=== PATIENT | female | born 1980 | race Caucasian/White ===

== ENCOUNTER 2020-03-07 09:08 | Outpatient (REF) | payer OTHER, SELFPAY | END 2020-03-07 09:09 | disposition home or self-care (01) | LOC: HO.LAB 09:08 | PROVIDERS: PCP Physician Assistant Medical; Visit Provider Internal Medicine | DX: Z20.828 Contact with and (suspected) exposure to other viral communicable diseases (principal) | CPT/HCPCS: 36415; C9803; U0003 ==

== ENCOUNTER 2021-04-24 09:30 | Outpatient (REF) | payer OTHER, SELFPAY ==
[2021-04-24 10:06] LABS: MANUAL DIFF FLAG NO
[2021-04-24 10:48] LABS: Basophils Absolute Auto 0.1 X10*3/uL (0.0-0.2); Eosinophils Absolute Auto 0.1 X10*3/uL (0.0-0.4); Eosinophils Percent Auto 1.6 % (0-4); Hematocrit 38.7 % (37.0-47.0); Imm Gran Abs Auto 0.02 X10*3/uL (0.00-0.03); Imm Gran Pct Auto 0.3 % (0.0-0.4); Lymphocytes Absolute Auto 1.7 X10*3/uL (1.2-4.9); Lymphocytes Percent Auto 24.6 % (20-40); Mean Corpuscular HGB Conc 33.6 g/dl (31.0-35.0); Mean Corpuscular Hemoglobin 29.8 pg (27.0-33.0); Mean Corpuscular Volume 88.8 fL (80.0-98.0); Mean Platelet Volume 8.7 fL (9.4-12.3); Monocytes Absolute Auto 0.6 X10*3/uL (0.1-1.2); Monocytes Percent Auto 8.8 % (2-11); Neutrophils Absolute Auto 4.3 x10*3/uL (2.0-8.3); Neutrophils Percent Auto 63.7 % (45-73); Platelet Count 294 X10*3/uL (160-400); Red Blood Count 4.36 X10*6/uL (4.20-5.50); Red Cell Distribution Width 11.9 % (11.0-16.0); White Blood Count 6.7 X10*3/uL (4.8-10.8)
[2021-04-24 11:24] LABS: Alanine Aminotransferase 14 U/L (0-31); Albumin Level 4.5 g/dL (3.5-5.0); Alkaline Phosphatase 78 U/L (39-117); Anion Gap 13 (12-20); Aspartate Amino Transferase 17 U/L (5-31); Bilirubin Total 0.7 mg/dL (0.0-1.0); Blood Urea Nitrogen 17 mg/dL (9-16); Calcium 9.6 mg/dL (8.4-10.2); Carbon Dioxide 27 mmol/L (22-29); Chloride 103 mmol/L (96-108); Cholesterol 156 mg/dL; Estimated Glomerular Filt Rate > 60; Glucose Fasting 90 mg/dL (60-99); HDL Cholesterol 79 mg/dL; LDL Cholesterol Calculated 71 mg/dl; Potassium 4.6 mmol/L (3.3-5.1); Sodium 138 mmol/L (135-145); Total Protein 7.3 g/dL (6.5-8.0); Triglycerides 34 mg/dL
[2021-04-24 11:49] LABS: Thyroid Stimulating Hormone 1.54 uIU/mL (0.32-4.0)
== END 2021-04-24 09:31 | disposition home or self-care (01) ==
LOC: HO.LAB 09:30
PROVIDERS: PCP Internal Medicine; Visit Provider Internal Medicine
DX: K59.01 Slow transit constipation (principal); E78.5 Hyperlipidemia, unspecified; I10 Essential (primary) hypertension
CPT/HCPCS: 36415; 80053; 80061; 84443; 85025

== ENCOUNTER 2022-01-09 07:56 | Outpatient (REF) | payer OTHER, SELFPAY ==
[2022-01-09 08:58] LABS: Anion Gap 16 (12-20); Blood Urea Nitrogen 16 mg/dL (9-16); Calcium 9.6 mg/dL (8.4-10.2); Carbon Dioxide 25 mmol/L (22-29); Chloride 104 mmol/L (96-108); Cholesterol 157 mg/dL; Estimated Glomerular Filt Rate > 60; Glucose Random 92 mg/dL (60-115); HDL Cholesterol 79 mg/dL; LDL Cholesterol Calculated 72 mg/dl; Potassium 4.6 mmol/L (3.3-5.1); Sodium 140 mmol/L (135-145); Triglycerides 32 mg/dL
== END 2022-01-09 07:57 | disposition home or self-care (01) ==
LOC: HO.LAB 07:56
PROVIDERS: Visit Provider Physician Assistant Medical
DX: Z00.00 Encounter for general adult medical examination without abnormal findings (principal)
CPT/HCPCS: 36415; 80048; 80061

== ENCOUNTER 2022-01-19 08:23 | Outpatient (REF) | payer OTHER, SELFPAY ==
--- NOTE | ~2022-01-19 | CT_ITS ---
EXAMINATION: CT HEAD WITHOUT CONTRAST CLINICAL INFORMATION: Headaches. COMPARISON: Head CT dated 04/04/2011. TECHNIQUE: Contiguous axial imaging was performed from the skullbase to vertex without intravenous administration of contrast. This CT examination was performed using dose optimization techniques as appropriate, variously including the following: *Automated exposure control *Adjustment of mA and/or kV according to patient size (this includes techniques or standardized protocols for targeted exams where dose is matched to indication/reason for exam; i.e. extremities or head) *Use of iterative reconstruction technique DLP: 782 mGy-cm. FINDINGS: There is no evidence of acute intracranial hemorrhage or territorial infarction. No abnormal mass effect or midline shift is seen. Nielson to white matter differentiation is well preserved. No extra-axial fluid collections are identified. The ventricles are normal in size. There is no abnormal attenuation within the brain parenchyma. The osseous structures and soft tissues are normal. The mastoid air cells and visualized portions of the paranasal sinuses are well aerated. CT/CT head/brain wo IV con IMPRESSION: No acute intracranial pathology.
== END 2022-01-19 08:24 | disposition home or self-care (01) ==
LOC: HO.CT 08:23
PROVIDERS: Visit Provider Physician Assistant Medical
DX: R51.9 Headache, unspecified (principal)
CPT/HCPCS: 70450

== ENCOUNTER 2022-02-18 12:09 | Outpatient (REF) | payer OTHER, SELFPAY ==
[2022-02-18 13:15] LABS: Influenza A PCR NEGATIVE (Negative); Influenza B PCR NEGATIVE (Negative); Resp Syncy Virus RNA Qual PCR NEGATIVE (Negative); SARS COV2 PCR INHOUSE NEGATIVE (Negative)
== END 2022-02-18 12:10 | disposition home or self-care (01) ==
LOC: HO.LNP 12:09
PROVIDERS: Visit Provider Nurse Practitioner Family
DX: Z20.822 Contact with and (suspected) exposure to COVID-19 (principal); R09.89 Other specified symptoms and signs involving the circulatory and respiratory systems
CPT/HCPCS: 0241U

== ENCOUNTER 2023-03-22 15:45 | Outpatient (AMB) | payer OTHER, MEDICAID, SELFPAY ==
[2023-03-22 15:47] VITALS: BP 132/78; PULSE 78; TEMP 36.7; O2SAT 97
--- NOTE | 2023-03-22 15:47 | AM.OFFWIN_ITS ---
Intake Vital Signs 03/22/23 15:47 Height 5 ft 8 in BP 132/78 Blood Pressure Location Lt brachial Position Sitting Pulse 78 Pulse Source Pulse Oximeter Temp 98.0 F Temp Source Oral Pulse Oximetry (%) 97 Oxygen Delivery Method Room Air Intake Visit Reasons: EP ?Strep Intake Note: pt is here for possible strep c/o sore throat Patient Tobacco Use Status: Former Tobacco user Allergies No Known Allergies Allergy (Verified 03/22/23 15:50) Do you need a note to return to daycare/school/sports/work: Yes HPI HPI Comments History of Present Illness Details Patient presents to the walk in today with complaint of sore throat since yesterday Children all sick with same. Daughter diagnosed with strep throat, other 2 children have appts tomorrow for testing C/O congestion, sore throat, fatigue. Denies chest pain, ear pain, palpitations, weakness, dizziness, syncope, shortness of breath PFSH Medical History Constipation by delayed colonic transit Essential hypertension CARL (generalized anxiety disorder) Physical exam Surgical History Mass of both axillae Family History Father Lung cancer Mother Colon cancer Hypertension Social History Housing: House Alcohol intake: current Alcohol intake frequency: a few times a week Alcohol type: beer, wine and hard liquor Patient Tobacco Use Status: Former Tobacco user Tobacco use type: Cigarette e-Cigarette/Vaping Use: Never Used Second Hand Smoke Exposure: No service: No Current occupational status: employed Current occupational exposures/hazards: No Cognitive needs: No Hearing needs: No Vision needs: Yes Review of Systems Const All systems reviewed & are unremarkable except as noted in HPI and below Physical Exam Vital Signs: Last Vital Signs Temp 98.0 F 03/22/23 15:47 Pulse 78 03/22/23 15:47 BP 132/78 03/22/23 15:47 Pulse Ox 97 03/22/23 15:47 Oxygen Delivery Method Room Air 03/22/23 15:47 General: awake, alert, oriented. Answers questions appropriately. Fully engaged in examination. Skin: warm, dry, intact HEENT: TMs intact bilaterally, +cerumen. Posterior pharynx without tonsils, +erythema, no exudate. Sclera without icterus or injection. Cardiac: External chest normal in appearance. Respiratory: +nasal congestion. LSCTAB. Abdomen: without gross distension. Neurological: Oriented to person, place, time and situation. Thought process intact. Psychiatric: Appropriate mood and affect. Good judgment and insight. Results AMB Rapid Strep AMB Rapid Strep Negative Last Edit by Paulo Murphy CMA on 03/22/23 16 :07 Results Reviewed Results Reviewed: Laboratory Last Values Strep Scn Rapid Clinic Negative 03/22/23 16:06 Assessment & Plan Assessment & Plan (1) Pharyngitis: Code(s): J02.9 - Acute pharyngitis, unspecified Plan Pharyngitis, rapid strep negative Patient symptomatic, posterior pharynx erythematous with known positive close contact. Amoxicillin 500mg po BID X 10 days Rest, drink plenty of fluids, tylenol and motrin as needed Follow up in clinic or with pcp for any new or worsening symptoms. Orders: Orders AMB Rapid Strep Screen Today Z13.9 - Encounter for screening, unspecified Medications: New amoxicillin 500 mg PO BID 10 days 20 tabs 0RF Coding Level of Care Code Est Pt Level 4 (34431) Diagnoses Pharyngitis J02.9
== END 2023-03-22 16:21 | disposition home or self-care (01) ==
PROVIDERS: PCP Internal Medicine; Visit Provider Registered Nurse Emergency
DX: J02.9 Acute pharyngitis, unspecified (principal)
CPT/HCPCS: 87880; 99214

== ENCOUNTER 2023-04-08 09:08 | Outpatient (AMB) | payer OTHER, MEDICAID, SELFPAY ==
--- NOTE | 2023-04-08 09:12 | MHC.PC.OV ---
Vital Signs 04/08/23 09:14 Height 5 ft 8 in Weight 141 lb BMI 21.4 BP 140/88 H Blood Pressure Location Lt brachial Position Sitting Pulse 86 Pulse Source Pulse Oximeter Pulse Oximetry (%) 95 Oxygen Delivery Method Room Air Intake Visit Reasons: Est Care/Transfer from Dr. Arora/HTN Intake Note: Pt is Est care transfer from Dr Arora Pt's last Pap was last 03/23 with [facility] officer Is last menstrual period known: Yes Last menstrual period: 04/05/23 Allergies No Known Allergies Allergy (Verified 07/23/23 15:33) Medication List - Last Reconciled 04/08/23 by DION Dutta amlodipine 2.5 mg PO DAILY dextroamphetamine-amphetamine 20 mg 1 tab PO DAILY PRN omega [id number]-xjj-fish oil 60-90-500 mg (Fish Oil) 1 cap PO DAILY sertraline 25 mg PO DAILY sertraline 100 mg PO BEDTIME Tobacco use date assessed: 04/08/23 Dental Screening Dental Screen Date: 04/08/23 Did you have a dental visit in the last 12 months?: Yes Did you have a dental problem in the last 6 months where you did not have access to dental care?: No Was dental information given to patient?: Patient has dentist HPI HPI Comments History of Present Illness Details Patient is a 42-year-old female here to establish care. She has a past medical history significant for hypertension and anxiety. Her OBGYN and mammogram are completed through [facility], will have patient send record. She has a mental health provider who helps treat her anxiety and depression. She is currently taking amlodipine 2.5 mg. Patient has been taking blood pressure measurements at home and states that the readings are similar to her blood pressure in office today. The patient denies palpitations, dizziness, chest pain, numbness. The patient is denying the influenza booster today. [facility], [facility] Medical History Axillary accessory breast tissue ADHD CARL (generalized anxiety disorder) Physical exam Constipation by delayed colonic transit Essential hypertension Surgical History Hx of tonsillectomy Mass of both axillae Family History Father Lung cancer Mother Colon cancer Hypertension Social History Housing: House Alcohol intake: current Alcohol intake frequency: a few times a week Alcohol type: beer, wine and hard liquor Patient Tobacco Use Status: Former Tobacco user Tobacco use type: Cigarette Cigarette Packs Per Day: 1 Years Smoked: 10 e-Cigarette/Vaping Use: Never Used Second Hand Smoke Exposure: No service: No Current occupational status: employed 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 1. Little interest or pleasure in doing things: not at all 2. Feeling down, depressed, or hopeless: several days 3. Trouble falling or staying asleep, or sleeping too much: several days 4. Feeling tired or having little energy: several days 5. Poor appetite or overeating: not at all 6. Feeling bad about yourself - or that you are a failure or have let yourself or your family down: not at all 7. Trouble concentrating on things, such as reading the newspaper or watching television: not at all 8. Moving or speaking so slowly that other people could have noticed. Or the opposite - being so fidgety or restless that you have been moving around a lot more than usual: not at all 9. Thoughts that you would be better off or of hurting yourself in some way: not at all Total score: 3 Depression Screening Interpretation: Negative Depression Screening Done: Yes 60860 - PHQ-9 Billing: Yes Source: Developed by Drs. Don Carroll, Tiffanie Orozco, Aaron Diaz and colleagues, with an educational yulissa from [employer]. Thrive Questionnaire Date Thrive assessed: 04/08/23 I am a: Patient What is your living situation today?: I have a steady place to live Within the past 12 months, did the food you bought not last and you didn't have the money to get more?: Never true Within the past 12 months, did you worry whether your food would run out before you got money to buy more?: Never true Do you have trouble paying for medicines?: No Do you have trouble getting transportation to medical appointments?: No Do you have trouble paying your heating and electricity bill?: No Do you have trouble taking care of your child, family member or friend?: No Do you have trouble with day-to-day activities such as bathing, preparing meals, shopping, managing finances, etc.?: No Are you currently unemployed and looking for a job?: No Are you interested in more education?: Yes THRIVE Score: 0 AUDIT C Alcohol Use Questionnaire (AUDIT-C) 1. How often do you have a drink containing alcohol?: Monthly or less 2. How many drinks containing alcohol do you have on a typical day when you are drinking?: 1 or 2 3. How often do you have six or more drinks on one occasion?: Never Total Score: 1 CARL-7 AMB Questionnaire CARL-7 Date CARL - 7 assessed: 04/08/23 Feeling nervous, anxious, or on edge: 0 = Not at all Not being able to stop or control worryin = Several days Worrying too much about different things: 0 = Not at all Trouble relaxin = Several days Being so restless that it is hard to sit still: 0 = Not at all Becoming easily annoyed or irritable: 0 = Not at all Feeling afraid as if something awful might happen: 0 = Not at all Total CARL-7 score (0-4 normal; 5-9 mild; 10-14 moderate; 15-21 severe): 2 Source: Developed by Drs. Don Carroll, Tiffanie Orozco, Aaron Diaz and colleagues, with an educational yulissa from [employer]. Review of Systems Const Details: Constitutional : No Weight loss, No Fever, No Chills, No Fatigue, No Malaise ENT/Mouth : No sore throat, No Rhinorrhea Eyes: No Eye Pain, No Swelling, No Redness Cardiovascular : No Chest Pain, No SOB, No Dyspnea on Exertion, No Orthopnea, No Edema, No Palpitations Respiratory : No Cough, No Sputum, No Wheezing Gastrointestinal : No Nausea, No Vomiting, No Diarrhea, No Constipation, No abdominal Pain, No Hematochezia, No Melena Genitourinary : No Dysuria, No Urinary Frequency, No Hematuria, Musculoskeletal : Admits right knee crepitus and intermittent pain. Skin : No Skin Lesions, No rash. Admits bilateral cold feet, toes intermittently turn purple color. Neuro : No Weakness, No Numbness, No Dizziness, No Headache Psych : No Anxiety/Panic, No Depression Heme/Lymph: No Bruising, No Bleeding,No Lymphadenopathy Endocrine : No Polyuria, No Polydipsia All other systems reviewed and are negative Physical exam (Primary Care) Vital Signs: Last Vital Signs Pulse 86 04/08/23 09:14 BP 140/88 H 04/08/23 09:14 Pulse Ox 95 04/08/23 09:14 Oxygen Delivery Method Room Air 04/08/23 09:14 Care Plan Goal for BP management: Patient's amlodipine increased from 2.5 to 5 mg p.o. daily. Next steps: Patient should continue to take blood pressure measurements at home and will get back to the office in 2 weeks her values. BMI result Body Mass Index 21.4 Tobacco/Smoking Status: Tobacco use Status Tobacco use date assessed 04/08/23 04/08/23 09:23 Patient Tobacco Use Status Former Tobacco user 04/08/23 09:16 Tobacco use type Cigarette 04/08/23 09:16 e-Cigarette/Vaping Use Never Used 04/08/23 09:16 PHQ-9: PHQ-9 Score PHQ-9: Total score 3 04/08/23 09:41 Depression Screening Interpretation: Negative Thrive Assessment: Date of Thrive Assessment Date Thrive assessed 04/08/23 04/08/23 09:28 Const Other: Appearance: Alert.? Oriented X3.? No acute distress.? Eyes: Pupils equal, round and reactive to light.? CVS: Normal heart rate and rhythm.? Pulses normal, +2. ? Respiratory: No respiratory distress.? Breath sounds normal.? Skin: Bilateral cold feet. Extremities: No lower extremity edema. Right knee crepitus. Tenderness to lateral aspect of right knee. No deformity. Patient is able to bare weight. Neuro: Oriented X 3.? No motor deficit.? No sensory deficit. CN 2-12 intact Assessment and Plan Assessment & Plan (1) CARL (generalized anxiety disorder): Comment: Patient is currently taking sertraline with good effect, and also sees a mental health nurse practitioner. Code(s): F41.1 - Generalized anxiety disorder Plan: Continue on treatment plan. (2) Essential hypertension: Comment: Patient taking amlodipine 2.5 mg. Patient will take blood pressure measurements at home. Code(s): I10 - Essential (primary) hypertension (3) Knee pain: Comment: Patient states she hurt her knee while doing yoga. Had x-rays performed at [facility], she will send records. Will refer patient to physical therapy. Code(s): M25.569 - Pain in unspecified knee Qualifiers: Chronicity: acute Laterality: right Qualified Code(s): M25.561 - Pain in right knee Plan: Take your medications as prescribed. If you were prescribed antibiotics today, it is important that you take your medication to their entirety, do not skip any doses, do not finish them early. Follow-up with your primary care provider this week. Return to the emergency department with new or worsening symptoms. Such as fevers, chills, chest pain, shortness of breath, nausea, vomiting, dizziness, headache, vision changes, lethargy In case of emergency call 911 Plan Follow-up physical exam in 3 months Orders: Orders Complete Blood Count Auto Diff 04/08/23 Z13.0 - Encounter for screening for diseases of the blood and blood-forming organs and certain disorders involving the immune mechanism Comprehensive Met. Panel 04/08/23 Z91.89 - Other specified personal risk factors, not elsewhere classified Lipid Panel 04/08/23 Z13.220 - Encounter for screening for lipoid disorders Vitamin B12 04/08/23 Z13.21 - Encounter for screening for nutritional disorder Vitamin D 25-OH (D2 and D3) 04/08/23 Z13.21 - Encounter for screening for nutritional disorder PT Evaluation and Treatment 04/08/23 M25.569 - Pain in unspecified knee TSH reflex Free T4 04/08/23 Z13.29 - Encounter for screening for other suspected endocrine disorder UA CC w/rflx Micro + Cult 04/08/23 E86.0 - Dehydration Vitamin B6 04/08/23 Z13.21 - Encounter for screening for nutritional disorder Medications: New amlodipine 5 mg PO DAILY 90 tabs 0RF Coding Level of Care Code Est Pt Level 4 (52868) Diagnoses CARL (generalized anxiety disorder) F41.1 Essential hypertension I10 Acute pain of right knee M25.561 Chronicity: acute Laterality: right
[2023-04-08 09:14] VITALS: BP 140/88; PULSE 86; O2SAT 95; BMI 21.4
== END 2023-04-08 09:50 | disposition home or self-care (01) ==
PROVIDERS: PCP Internal Medicine; Visit Provider Nurse Practitioner Primary Care
DX: F41.1 Generalized anxiety disorder (principal); I10 Essential (primary) hypertension; M25.561 Pain in right knee
CPT/HCPCS: 99499

== ENCOUNTER 2023-04-13 08:03 | Outpatient (REF) | payer MEDICAID, SELFPAY ==
--- NOTE | ~2023-04-13 | XR_ITS ---
EXAMINATION: XR KNEE, RIGHT CLINICAL INFORMATION: Pain in right knee. COMPARISON: None available. TECHNIQUE: 3 views of the right knee. FINDINGS: [id number] suprapatellar effusion. Mild medial joint space narrowing. Minimal medial marginal and posterior patellar spurring. XR/XR knee RT 3V IMPRESSION: [id number]-jl-wexeo suprapatellar effusion. Mild degenerative changes.
== END 2023-04-13 08:04 | disposition home or self-care (01) ==
LOC: HO.HOSX 08:03
PROVIDERS: Visit Provider Orthopaedic Surgery
DX: M25.561 Pain in right knee (principal)
CPT/HCPCS: 73562

== ENCOUNTER 2023-04-13 11:29 | Outpatient (AMB) | payer OTHER, MEDICAID, SELFPAY ==
--- NOTE | 2023-04-13 11:30 | A.OFFVIS_ITS ---
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 Patient reports that the pain has been going on for about 3 months and is a 8 on the 1-10 pain scale. She reports she injured it mid December while doing yoga. She states that her pain is worse when the knee is bent for a long period of time but after a while it becomes tolerable with walking. The patient states that at times it feels like her right knee is locked. She has done physical therapy exercises which aggravated her pain. She has also tried Tylenol and anti-inflammatory medicines which gave her minimal relief. Allergies No Known Allergies Allergy (Verified 04/13/23 11:43) [facility] Medical History (Updated 04/13/23 @ 11:45 by Cecy Helm CMA) Axillary accessory breast tissue ADHD CARL (generalized anxiety disorder) Physical exam Constipation by delayed colonic transit Essential hypertension Surgical History (Updated 04/13/23 @ 11:45 by Cecy Helm CMA) Hx of tonsillectomy Mass of both axillae Family History Father Lung cancer Mother Colon cancer Hypertension Social History Housing: House Alcohol intake: current Alcohol intake frequency: a few times a week Alcohol type: beer, wine and hard liquor Patient Tobacco Use Status: Former Tobacco user Tobacco use type: Cigarette Cigarette Packs Per Day: 1 Years Smoked: 10 e-Cigarette/Vaping Use: Never Used Second Hand Smoke Exposure: No service: No Current occupational status: employed Current occupational exposures/hazards: No Cognitive needs: No Hearing needs: No Vision needs: Yes Physical Exam Vital Signs: BMI result Body Mass Index 21.4 Const Other: Well-nourished well-developed very friendly female awake alert and oriented x3 in no acute distress Extrem Other: Right knee examination shows a minimal effusion, no crepitus with range of motion, tenderness along her medial and lateral joint lines, positive Zoe's test Results Reviewed Results Reviewed: X-rays of the patient's right knee show minimal joint space narrowing, no acute bony abnormalities Assessment & Plan Assessment & Plan (1) Right knee pain: Code(s): M25.561 - Pain in right knee Plan Ms. Han presents with right knee pain and mechanical symptoms possibly due to medial and/or lateral meniscus tearing. Thus, I will send the patient for an MRI of her right knee for further evaluation. I will see her back once the MRI is completed to discuss the findings and treatment options. She will continue with her activity modifications in the meantime. Feel free to call me at any time should questions regarding her orthopedic management arise. I spent 19 minutes in reviewing the patient's records and imaging studies, seeing the patient and documenting in the medical record. Orders: Orders XR knee RT 3V Today M25.561 - Pain in right knee MR knee RT wo con Today M25.561 - Pain in right knee Coding Level of Care Code New Pt Level 2 (65455) Diagnoses Right knee pain M25.561
[2023-04-13 11:31] VITALS: BMI 21.4
== END 2023-04-13 12:03 | disposition home or self-care (01) ==
LOC: HO.HOS 11:29
PROVIDERS: PCP Internal Medicine; Visit Provider Orthopaedic Surgery
DX: M25.561 Pain in right knee (principal)
CPT/HCPCS: 99202

== ENCOUNTER 2023-05-18 20:03 | Outpatient (REF) | payer OTHER, MEDICAID, SELFPAY ==
--- NOTE | ~2023-05-18 | MR_ITS ---
EXAMINATION: MR KNEE WITHOUT CONTRAST, RIGHT CLINICAL INFORMATION: Pain in the right knee. COMPARISON: X-rays of the right knee April 2023. TECHNIQUE: MRI of the knee without contrast was performed using routine sequences on a high-field scanner. FINDINGS: MENISCI: Medial Meniscus: Intact Lateral Meniscus: Intact LIGAMENTS: Cruciate: There is a 5 mm fluid collection abutting the proximal fibers of the anterior cruciate ligament compatible with a synovial recess or cruciate cyst. Ligament intact. PCL intact. Collateral: Intact EXTENSOR MECHANISM: Intact ARTICULAR CARTILAGE/BONE: Patellofemoral Compartment: Normal Medial Compartment: Normal Lateral Compartment: Normal JOINT FLUID AND BURSAE: Normal MISCELLANEOUS: Small enthesopathic cyst at the anterior root of the medial meniscus attachment without clinical significance. MR/MR knee RT wo con IMPRESSION: 1. Small cruciate cyst versus synovial recess abutting the proximal fibers of the anterior cruciate ligament. 2. Menisci intact.
== END 2023-05-18 20:04 | disposition home or self-care (01) ==
LOC: HO.MRI 20:03
PROVIDERS: PCP Internal Medicine; Visit Provider Orthopaedic Surgery
DX: M25.561 Pain in right knee (principal)
CPT/HCPCS: 73721

== ENCOUNTER 2023-06-01 13:32 | Outpatient (AMB) | payer OTHER, MEDICAID, SELFPAY ==
[2023-06-01 13:33] VITALS: BMI 21.4
--- NOTE | 2023-06-01 13:33 | A.OFFVIS_ITS ---
Intake Vital Signs 06/01/23 13:33 Height 5 ft 8 in Weight 141 lb BMI 21.4 Intake Visit Reasons: OV-MRI Knee RT-follow up Intake Note: Shonna is a 42 year old female who presents for follow-up of her right knee pain. Patient reports that the pain has been going on for about 4 months and is a 8 on the 1-10 pain scale. She reports she injured it mid December while doing yoga. She states that her pain is worse when the knee is bent for a long period of time but after a while it becomes tolerable with walking. The patient states that at times it feels like her right knee is locked. She has done stretching exercises which aggravated her pain. She has also tried Tylenol and anti-inflammatory medicines which gave her minimal relief. Allergies No Known Allergies Allergy (Verified 06/01/23 13:36) [facility] Medical History (Updated 04/13/23 @ 11:45 by Cecy Helm CMA) Axillary accessory breast tissue ADHD CARL (generalized anxiety disorder) Physical exam Constipation by delayed colonic transit Essential hypertension Surgical History (Updated 04/13/23 @ 11:45 by Cecy Helm CMA) Hx of tonsillectomy Mass of both axillae Family History Father Lung cancer Mother Colon cancer Hypertension Social History (Updated 06/01/23 @ 13:36 by Cecy Helm CMA) Housing: House Alcohol intake: current Alcohol intake frequency: a few times a week Alcohol type: beer, wine and hard liquor Patient Tobacco Use Status: Former Tobacco user Tobacco use type: Cigarette Cigarette Packs Per Day: 1 Years Smoked: 10 e-Cigarette/Vaping Use: Never Used Second Hand Smoke Exposure: No service: No Current occupational status: employed 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 Current occupational exposures/hazards: No Cognitive needs: No Hearing needs: No Vision needs: Yes Physical Exam Vital Signs: BMI result Body Mass Index 21.4 Const Other: Well-nourished well-developed very friendly female awake alert and oriented x3 in no acute distress Extrem Other: Bilateral lower extremity examination shows good capillary refill, no skin lesions noted, normal sensation light touch Right knee examination shows tenderness along her hamstrings insertion, pain with range of motion, no instability Results Reviewed Results Reviewed: MRI of the patient's right knee shows evidence of meniscus tearing, there is a 5 mm fluid collection along the proximal fibers of the anterior cruciate ligament consistent with the synovial cyst Assessment & Plan Assessment & Plan (1) Right knee pain: Code(s): M25.561 - Pain in right knee Plan Ms. Han presents with right knee pain of unclear etiology. The only abnormality found on her MRI is a synovial cyst along the proximal aspect of her anterior cruciate ligament. I am not sure that this is the source of her symptoms. The patient may have chronic hamstrings tendinitis. Thus, I will have the patient evaluated by my partner, Dr. Celaya, for his input regarding the etiology of her symptoms. I also gave her a prescription to go to formal physical therapy at [facility] in [place]. She will follow up with me on an as-needed basis should her symptoms not plateau at an unacceptable level over the next few months. Feel free to call me at any time should questions regarding her orthopedic management arise. I spent 19 minutes in reviewing the patient's records and imaging studies, seeing the patient and documenting in the medical record. Orders: Orders PT Evaluation and Treatment Today M25.561 - Pain in right knee Coding Level of Care Code Est Pt Level 2 (62485) Diagnoses Right knee pain M25.561
== END 2023-06-01 13:57 | disposition home or self-care (01) ==
PROVIDERS: PCP Internal Medicine; Visit Provider Orthopaedic Surgery
DX: M25.561 Pain in right knee (principal)
CPT/HCPCS: 99213

== ENCOUNTER → 2023-06-01 13:32 | Outpatient (BNVA) | payer OTHER, MEDICAID, SELFPAY | PROVIDERS: PCP Internal Medicine; Visit Provider Orthopaedic Surgery ==

== ENCOUNTER 2023-06-04 09:24 | Outpatient (REF) | payer OTHER, MEDICAID, SELFPAY ==
[2023-06-04 09:53] LABS: MANUAL DIFF FLAG NO
[2023-06-04 10:44] LABS: Basophils Percent Auto 0.8 % (0-2); Eosinophils Absolute Auto 0.1 X10*3/uL (0.0-0.4); Hematocrit 36.3 % (37.0-47.0); Hemoglobin 12.4 g/dl (12.0-16.0); Imm Gran Abs Auto 0.03 X10*3/uL (0.00-0.03); Imm Gran Pct Auto 0.6 % (0.0-0.4); Lymphocytes Absolute Auto 1.2 X10*3/uL (1.2-4.9); Lymphocytes Percent Auto 22.4 % (20-40); Mean Corpuscular HGB Conc 34.2 g/dl (31.0-35.0); Mean Corpuscular Hemoglobin 29.8 pg (27.0-33.0); Mean Corpuscular Volume 87.3 fL (80.0-98.0); Mean Platelet Volume 8.9 fL (9.4-12.3); Monocytes Absolute Auto 0.4 X10*3/uL (0.1-1.2); Monocytes Percent Auto 8.1 % (2-11); Neutrophils Absolute Auto 3.5 x10*3/uL (2.0-8.3); Neutrophils Percent Auto 67.1 % (45-73); Platelet Count 244 X10*3/uL (160-400); Red Blood Count 4.16 X10*6/uL (4.20-5.50); Red Cell Distribution Width 12.3 % (11.0-16.0); White Blood Count 5.2 X10*3/uL (4.8-10.8)
[2023-06-04 11:16] LABS: Appearance Urine Clear; Color Urine Dark Yellow; Glucose Urine UA Negative (Negative); Leukocyte Esterase Urine Trace (Negative); Nitrite Urine Negative (Negative); PH 6.5 (5.0-9.0); Specific Gravity - Urine 1.025 (1.005-1.025); UMIC TRIGGER UACC YES; Urine Blood Negative (Negative); Urine Ketones Trace mg/dL (Negative); Urine Protein Negative (Neg-Trace)
[2023-06-04 11:19] LABS: Bacteria Urine None Seen (None Seen); Hyaline Casts Urine 0-2 /LPF (0-2); RBC Urine 0-2 /HPF (0-2); WBC Urine 0-5 /HPF (0-5)
[2023-06-04 11:39] LABS: Alanine Aminotransferase 16 U/L (0-31); Albumin Level 4.2 g/dL (3.5-5.0); Alkaline Phosphatase 53 U/L (39-117); Anion Gap 9 (12-20); Aspartate Amino Transferase 17 U/L (5-31); Bilirubin Total 0.4 mg/dL (0.0-1.0); Blood Urea Nitrogen 14 mg/dL (9-16); Calcium 9.1 mg/dL (8.4-10.2); Carbon Dioxide 27 mmol/L (22-29); Chloride 107 mmol/L (96-108); Cholesterol 148 mg/dL (<200); Estimated Glomerular Filt Rate > 60; Glucose Random 83 mg/dL (60-115); HDL Cholesterol 70 mg/dL (>40); LDL Cholesterol Calculated 69 mg/dL (<100); Potassium 4.2 mmol/L (3.3-5.1); Sodium 139 mmol/L (135-145); Total Protein 7.3 g/dL (6.5-8.0); Triglycerides 47 mg/dL (<150)
[2023-06-04 11:57] LABS: TSH reflex Free T4 1.35 uIU/mL (0.32-4.0)
[2023-06-04 13:14] LABS: Vitamin B12 487 pg/mL (200-900)
[2023-06-08 11:58] LABS: Vitamin D 25-OH, D2 <4 ng/mL; Vitamin D 25-OH, D3 41 ng/mL; Vitamin D 25-OH, Total 41 ng/mL (30-100)
== END 2023-06-04 09:25 | disposition home or self-care (01) ==
LOC: HO.LAB 09:24
PROVIDERS: PCP Nurse Practitioner Primary Care; Visit Provider Nurse Practitioner Primary Care
DX: Z13.0 Encounter for screening for diseases of the blood and blood-forming organs and certain disorders involving the immune mechanism (principal); Z13.29 Encounter for screening for other suspected endocrine disorder; Z13.21 Encounter for screening for nutritional disorder; Z13.6 Encounter for screening for cardiovascular disorders; Z13.220 Encounter for screening for lipoid disorders; Z91.89 Other specified personal risk factors, not elsewhere classified
CPT/HCPCS: 36415; 80053; 80061; 81001; 82306; 82607; 84207; 84443; 85025

== ENCOUNTER 2023-06-10 14:20 | Outpatient (AMB) | payer OTHER, MEDICAID, SELFPAY ==
--- NOTE | 2023-06-10 14:42 | A.OFFVIS_ITS ---
Intake Intake Visit Reasons: ov- RT Knee Cyst on ACL - Dr. Covarrubias Referral Intake Note: Shonna is a 42 year old female who presents today as a referral from Dr. Covarrubias for complaints of her right knee pain. Patient reports that she injured the knee while doing yoga in December of 2022. She states that her pain is worse when the knee is bent for a long period of time but after a while it becomes tolerable with walking. The patient states that at times it feels like her right knee is locked. She has done physical therapy exercises which aggravated her pain. She has also tried Tylenol and anti-inflammatory medicines which gave her minimal relief. MRI was done showing synovial cyst along the proximal aspect of her anterior cruciate ligament. Allergies No Known Allergies Allergy (Verified 06/10/23 14:45) HPI ov- RT Knee Cyst on ACL - Dr. 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 MRI obtained. Her pain is minimal but she does not feel right . She denies mechanical symptoms. [facility] Medical History (Updated 06/12/23 @ 10:27 by Mark Celaya MD) Axillary accessory breast tissue ADHD CARL (generalized anxiety disorder) Physical exam Constipation by delayed colonic transit Essential hypertension Surgical History (Updated 04/13/23 @ 11:45 by Cecy Helm CMA) Hx of tonsillectomy Mass of both axillae Family History Father Lung cancer Mother Colon cancer Hypertension Social History (Updated 06/01/23 @ 13:36 by Cecy Helm CMA) Housing: House Alcohol intake: current Alcohol intake frequency: a few times a week Alcohol type: beer, wine and hard liquor Patient Tobacco Use Status: Former Tobacco user Tobacco use type: Cigarette Cigarette Packs Per Day: 1 Years Smoked: 10 e-Cigarette/Vaping Use: Never Used Second Hand Smoke Exposure: No service: No Current occupational status: employed 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 Current occupational exposures/hazards: No Cognitive needs: No Hearing needs: No Vision needs: Yes Physical Exam Extrem Other: essentially nl exam some discomfort with deep posterior knee palpation Results Reviewed Results Reviewed: I personally reviewed the MR images. I reveiwed the MRI personally and in detail. I do not think the small cyst adjacent to the ACL is meaningful. There is a small perimeniscal cyst posterolaterally which may be causal. Assessment & Plan Assessment & Plan (1) Perimeniscal cyst of right knee: Code(s): M23.006 - Cystic meniscus, unspecified meniscus, right knee Plan: Perimeniscal cyst which may be casuing mild symptoms. The cyst is small and incidental. There in no intervention warranted at this time. U/S guided injection would be most appropriate next step if pain worsens. I discussed this with her. Coding Level of Care Code Est Pt Level 4 (19413) Diagnoses Perimeniscal cyst of right knee M23.006
== END 2023-06-10 15:09 | disposition home or self-care (01) ==
PROVIDERS: PCP Internal Medicine; Visit Provider Orthopaedic Surgery
DX: M23.006 Cystic meniscus, unspecified meniscus, right knee (principal)
CPT/HCPCS: 99213

== ENCOUNTER → 2023-06-10 14:20 | Outpatient (BNVA) | payer OTHER, MEDICAID, SELFPAY | PROVIDERS: PCP Internal Medicine; Visit Provider Orthopaedic Surgery ==

== ENCOUNTER 2023-06-18 11:03 | Outpatient (AMB) | payer OTHER, MEDICAID, SELFPAY ==
--- NOTE | 2023-06-18 11:05 | MHC.PC.OV ---
Vital Signs 06/18/23 11:12 Height 5 ft 8 in Weight 142 lb BMI 21.6 BP 110/70 Blood Pressure Location Rt brachial Position Sitting Pulse 64 Pulse Source Pulse Oximeter Pulse Oximetry (%) 98 Oxygen Delivery Method Room Air Intake Visit Reasons: Annual PE Intake Note: Patient here for physical exam. last Pap: 03/2022 Mammo: not done yet Allergies No Known Allergies Allergy (Verified 06/18/23 11:35) Medication List - Last Reconciled 06/18/23 by DION Dutta amlodipine 2.5 mg PO DAILY dextroamphetamine-amphetamine 20 mg 1 tab PO DAILY PRN fluticasone propionate 50 mcg/actuation (Allergy Relief (fluticasone)) 1 spray intranasal DAILY omega 2-evq-sxd-fish oil 60-90-500 mg (Fish Oil) 1 cap PO DAILY sertraline 100 mg PO BEDTIME Tobacco use date assessed: 04/08/23 Dental Screening Dental Screen Date: 04/08/23 HPI HPI Comments History of Present Illness Details Patient is a 42-year-old female in for physical exam Patient is due for mammogram, will refer. Patient declines influenza immunization. Patient's left Pap smear done and March 2022. Patient has established OBGYN at [facility]. Would like to switch and see [facility] [employer]. Hypertension, patient is on 2.5 mg amlodipine ADHD, patient currently taking dextroamphetamine-amphetamine. For anxiety patient is taking sertraline. Patient has Raynaud's phenomena of bilateral toe, not improving with movement or warm weather. Patient has right knee pain, currently being seen by Ortho. Patient has cyst to the knee, patient undergoing physical therapy and potential for injections, per ortho notes. [facility] Medical History Axillary accessory breast tissue ADHD CARL (generalized anxiety disorder) Physical exam Constipation by delayed colonic transit Essential hypertension Surgical History Hx of tonsillectomy Mass of both axillae Family History Father Lung cancer Mother Colon cancer Hypertension Social History Housing: House Alcohol intake: current Alcohol intake frequency: a few times a week Alcohol type: beer, wine and hard liquor Patient Tobacco Use Status: Former Tobacco user Tobacco use type: Cigarette Cigarette Packs Per Day: 1 Years Smoked: 10 e-Cigarette/Vaping Use: Never Used Second Hand Smoke Exposure: No service: No Current occupational status: employed 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 Current occupational exposures/hazards: No Cognitive needs: No Hearing needs: No Vision needs: Yes Questionnaire Thrive Questionnaire Date Thrive assessed: 04/08/23 CARL-7 AMB Questionnaire CARL-7 Date CARL - 7 assessed: 04/08/23 Source: Developed by Drs. Don Carroll, Tiffanie Orozco, Aaron Diaz and colleagues, with an educational yulissa from [employer]. Review of Systems Const All systems reviewed & are unremarkable except as noted in HPI and below ENT Denies vertigo, Denies dizziness, Reports post nasal drip and Reports sore throat Card Denies chest pain and Denies dyspnea Resp Denies dyspnea GI Denies diarrhea, Denies nausea and Denies vomiting Musc Denies numbness, Denies tingling and Reports other (Cold bilateral toes, slightly purple.) Skin/Breast Reports change in pigmentation (Slightly purple toes bilateral) Neuro Denies vertigo, Denies dizziness, Denies numbness and Denies tingling Physical exam (Primary Care) Vital Signs: Last Vital Signs Pulse 64 06/18/23 11:12 BP 110/70 06/18/23 11:12 Pulse Ox 98 06/18/23 11:12 Oxygen Delivery Method Room Air 06/18/23 11:12 Care Plan Goal for BP management: Vital signs reviewed stable. BMI result Body Mass Index 21.6 Tobacco/Smoking Status: Tobacco use Status Tobacco use date assessed 04/08/23 06/18/23 11:10 Patient Tobacco Use Status Former Tobacco user 06/18/23 11:10 Tobacco use type Cigarette 06/18/23 11:10 e-Cigarette/Vaping Use Never Used 06/18/23 11:10 Thrive Assessment: Date of Thrive Assessment Date Thrive assessed 04/08/23 06/18/23 11:10 Const General: cooperative and no acute distress Nutritional Appearance: average body habitus Orientation/consciousness: patient oriented x3 Limitations: no limitations HENMT Head: Yes normal to inspection and Yes normocephalic Ears: TM abnormal obstructed by cerumen bilateral General nose exam: Normal external nose present Face and sinus: Yes normal facial exam and Yes sinuses nontender Mouth: Normal oral and palatal mucosa present Throat: Yes postnasal drainage Eyes Sclerae: sclerae normal Corneas: corneas normal Pupils: Equal, round and reactive pupils present EOM: EOMs intact bilaterally Direct Ophthalmoscopy: normal light reflex and no photophobia Neck Neck: Yes normal visual inspection, Yes full ROM and Yes no lymphadenopathy Thyroid: Thyroid normal Carotids: normal carotid upstroke Lymphatic: no lymphadenopathy noted Chest Chest palpation & inspection: normal inspection of the chest Resp Effort & Inspection: normal respiratory effort Auscultation: clear to auscultation bilaterally Cardio Rate: regular rate Rhythm: regular rhythm Heart sounds: S1 normal heart sound present and S2 normal heart sound present Peripheral pulses: Peripheral pulses 2+ throughout GI Inspection: Yes normal to inspection Percussion: Yes normal to percussion Auscultation: normal bowel sounds Rectal Exam - Female: deferred General: Yes no CVA tenderness Back/Spine/Pelvis Back: no CVA tenderness Skin General skin exam: other (Slight discoloration of purple toes. Blanching. ) Neuro General: patient oriented x3 Cranial nerves: Yes CN's II-XII intact bilaterally and Yes Equal, round and reactive pupils present Motor exam (neuro): 5/5 motor strength present throughout Romberg Test: Negative Extrem General: Yes normal to inspection, Yes full ROM and Yes capillary refill normal Right lower extremity: foot (cold toes) Left lower extremity: foot (cold toes) Psych Thought process: Normal thought process present Thought content: Normal thought content present Insight: Good insight present (Psych) Judgement: Good judgement present (Psych) Office Procedures Cerumen Removal From which ear canal was the cerumen removed: bilateral [id number] Irrigation/Lavage Results AMB Rapid Strep AMB Rapid Strep Negative Last Edit by DERIK Borden on 06/18/23 12:21 Results Reviewed Results Reviewed: Laboratory Last Values Strep Scn Rapid Clinic Negative 06/18/23 12:20 Sodium 139 135-145 mmol/L Potassium 4.2 3.3-5.1 mmol/L CL 107 96-108 mmol/L CO2 27 22-29 mmol/L Gap 9 L 12-20 BUN 14 9-16 mg/dL Creat 0.68 0.5-1.4 mg/dL EGFR > 60 NOTE: For -[place] individuals, multiply the result by 1.210. Chronic Kidney Disease: Estimated GFR < 60 mL/min/1.73m2 Severe Kidney Disease: Estimated GFR < 15 mL/min/1.73m2 Glucose, Random 83 60-115 mg/dL CA 9.1 8.4-10.2 mg/dL Total Bili 0.4 0.0-1.0 mg/dL AST (GOT) 17 5-31 U/L ALT (GPT) 16 0-31 U/L Protein, Total 7.3 6.5-8.0 g/dL Alb 4.2 3.5-5.0 g/dL Triglyceride 47 <150 mg/dL Desirable Triglyceride: less than 150 mg/dL Borderline High Triglyceride 150-199 mg/dL High Triglyceride: 200-499 mg/dL Very High Triglyceride: greater than or equal to 5OO mg/dL Cholesterol 148 <200 mg/dL Desirable Cholesterol: less than 200 mg/dL Borderline High Cholesterol: 200-239 mg/dL High Cholesterol: greater than 239 mg/dL LDL Calculated 69 <100 mg/dL Desirable LDL: less than 100 mg/dL Near Optimal/Above Optimal LDL: 110-129 mg/dL Borderline High LDL: 130-159 mg/dL High LDL: 160-189 mg/dL Very High LDL: greater than or equal to 190 mg/dL HDL 70 >40 mg/dL Desirable HDL: greater than 40 mg/dL Note: This HDL assay may give artificially low results in patients with liver disease. Alk Phos 53 39-117 U/L TSH 1.35 0.32-4.0 uIU/mL Assessment and Plan Assessment & Plan (1) Raynauds disease: Comment: Will order arterial ultrasound lower extremity bilateral toes. Code(s): I73.00 - Raynaud's syndrome without gangrene Qualifiers: Raynaud?s-associated gangrene presence: without gangrene Qualified Code(s): I73.00 - Raynaud's syndrome without gangrene (2) Perimeniscal cyst of right knee: Comment: Patient being seen by Ortho. Utilizing physical therapy. Pain improving Code(s): M23.006 - Cystic meniscus, unspecified meniscus, right knee (3) CARL (generalized anxiety disorder): Comment: Patient is currently taking sertraline with good effect, and also sees a mental health nurse practitioner. Code(s): F41.1 - Generalized anxiety disorder (4) Essential hypertension: Comment: Patient taking amlodipine 2.5 mg. Patient will take blood pressure measurements at home. Code(s): I10 - Essential (primary) hypertension Plan: Blood pressure in good control. Plan Follow-up and 3 months. Orders: Orders US arterial duplex LE BI Today I73.00 - Raynaud's syndrome without gangrene MM tomosynthesis screening BI Today Z12.31 - Encounter for screening mammogram for malignant neoplasm of breast AMB Cerumen Removal Today H61.23 - Impacted cerumen, bilateral AMB Rapid Strep Screen Today Z13.9 - Encounter for screening, unspecified Referrals [employer] WORK[employer] Referral Z12.4 - Encounter for screening for malignant neoplasm of cervix Medications: Changed From amlodipine 5 mg PO DAILY 90 tabs 0RF To amlodipine 2.5 mg PO DAILY Coding Level of Care Code Est Pt Prev Care 40-64y(57449) Diagnoses Raynaud's disease without gangrene I73.00 Raynaud?s-associated gangrene presence: without gangrene Perimeniscal cyst of right knee M23.006 CARL (generalized anxiety disorder) F41.1 Essential hypertension I10 CPT Codes Office Procedure - CPT: 80844-Bis Irrigation/Lavage ([id number])
[2023-06-18 11:12] VITALS: BP 110/70; PULSE 64; O2SAT 98; BMI 21.6
== END 2023-06-18 12:11 | disposition home or self-care (01) ==
PROVIDERS: PCP Nurse Practitioner Primary Care; Visit Provider Nurse Practitioner Primary Care
DX: H61.23 Impacted cerumen, bilateral (principal); J02.9 Acute pharyngitis, unspecified
CPT/HCPCS: 69209; 87880; 99396

== ENCOUNTER 2023-06-29 13:06 | Outpatient (REF) | payer OTHER, MEDICAID, SELFPAY ==
--- NOTE | ~2023-06-29 | US_ITS ---
EXAMINATION: US arterial duplex LE BI CLINICAL INFORMATION: Raynaud's syndrome without gangrene COMPARISON: None TECHNIQUE: Duplex Doppler techniques with wave form analysis and measurement of velocities in the common femoral, profunda femoral, superficial femoral, popliteal, tibial and peroneal arteries. The study was performed only at rest. FINDINGS: RIGHT LEG: DIRECT DUPLEX: Common femoral artery: 150 cm/s, Multiphasic Profunda femoris artery: 94 cm/s, Multiphasic Superficial femoral artery (proximal): 98 cm/s, Multiphasic Superficial femoral artery (mid): 106 cm/s, Multiphasic Superficial femoral artery (distal): 110 cm/s, Multiphasic Distal Popliteal artery: 64 cm/s, Multiphasic Mid posterior tibial artery: 62 cm/s, Multiphasic Peroneal artery: 35 cm/s, Multiphasic Anterior tibial artery: 27 cm/sec, triphasic Dorsalis pedis artery: 35 cm/sec, triphasic LEFT LEG: DIRECT DUPLEX: Common femoral artery: 132 cm/s, Multiphasic Profunda femoris artery: 90 cm/s, Multiphasic Superficial femoral artery (proximal): 97 cm/s, Multiphasic Superficial femoral artery (mid): 132 cm/s, Multiphasic Superficial femoral artery (distal): 98 cm/s, Multiphasic Distal Popliteal artery: 74 cm/s, Multiphasic Proximal posterior tibial artery: 40 cm/s, Multiphasic Peroneal artery: 44 cm/s, Multiphasic Anterior tibial artery: 38 cm/sec, triphasic Dorsalis artery: 20 cm/sec, monophasic US/US arterial duplex LE BI IMPRESSION: No hemodynamically significant arterial disease.
== END 2023-06-29 13:07 | disposition home or self-care (01) ==
LOC: HO.US 13:06
PROVIDERS: PCP Nurse Practitioner Primary Care; Visit Provider Nurse Practitioner Primary Care
DX: I73.00 Raynaud's syndrome without gangrene (principal)
CPT/HCPCS: 93925

== ENCOUNTER → 2023-07-12 10:15 | Outpatient (BNV) | payer OTHER, MEDICAID, SELFPAY | PROVIDERS: PCP Internal Medicine; Visit Provider Radiology Diagnostic Radiology | DX: Z12.31 Encounter for screening mammogram for malignant neoplasm of breast (principal) | CPT/HCPCS: 77063; 77067 ==

== ENCOUNTER 2023-07-12 10:17 | Outpatient (REF) | payer OTHER, MEDICAID, SELFPAY ==
--- NOTE | ~2023-07-12 | MM_ITS ---
EXAMINATION: MM SCREENING DIGITAL BREAST TOMOSYNTHESIS, BILATERAL CLINICAL INFORMATION: Screening. Asymptomatic. COMPARISON: Mammography: This is a baseline study. TECHNIQUE: Digital breast tomosynthesis is performed in both the craniocaudal and mediolateral oblique views along with computer-aided detection (CAD). Synthesized 2D images are generated from the tomosynthesis. FINDINGS: The breasts are heterogeneously dense, which may obscure small masses (ACR BI-RADS breast composition Category c). There are no significant masses, abnormal calcifications, or other abnormalities. MM/MM tomosynthesis screening BI IMPRESSION: No mammographic evidence of malignancy. ASSESSMENT: BI-RADS BI-RADS 1 - Negative RECOMMENDATION: Routine annual mammography screening. 1 year F/U This examination should not preclude the clinical evaluation of a suspicious palpable abnormality. This patient's information was entered into a reminder system with a target due date for their next mammogram.
== END 2023-07-12 10:18 | disposition home or self-care (01) ==
LOC: HO.MAMMO 10:17
PROVIDERS: PCP Internal Medicine; Visit Provider Nurse Practitioner Primary Care
DX: Z12.31 Encounter for screening mammogram for malignant neoplasm of breast (principal)
CPT/HCPCS: 77063; 77067

== ENCOUNTER → 2023-07-23 14:52 | Outpatient (AMB) | payer OTHER, MEDICAID, SELFPAY ==
[2023-07-23 15:32] VITALS: BP 106/62; PULSE 73; TEMP 36.6; O2SAT 97; BMI 21.6
--- NOTE | 2023-07-23 15:32 | AM.OFFWIN_ITS ---
Intake Vital Signs 07/23/23 15:32 Height 5 ft 8 in Weight 142 lb BMI 21.6 BP 106/62 Blood Pressure Location Rt brachial Position Sitting Pulse 73 Pulse Source Pulse Oximeter Temp 97.8 F Temp Source Temporal Artery Scan Pulse Oximetry (%) 97 Intake Visit Reasons: EST/right hand pointer finger inj(lobby) Intake Note: pt is here for right hand pointer finger injury Patient Tobacco Use Status: Former Tobacco user Allergies No Known Allergies Allergy (Verified 07/23/23 15:33) Do you need a note to return to daycare/school/sports/work: No HPI HPI Comments History of Present Illness Details 42 y/o female patient who presents to [facility] in clinic with c/o left index finger injury. She was walking her Dog earlier today, when the Dog pulled on the leash, and twist the finger. Pt reports pain with flexion of finger. PFSH Medical History Axillary accessory breast tissue ADHD CARL (generalized anxiety disorder) Physical exam Constipation by delayed colonic transit Essential hypertension Surgical History Hx of tonsillectomy Mass of both axillae Family History Father Lung cancer Mother Colon cancer Hypertension Social History Housing: House Alcohol intake: current Alcohol intake frequency: a few times a week Alcohol type: beer, wine and hard liquor Patient Tobacco Use Status: Former Tobacco user Tobacco use type: Cigarette Cigarette Packs Per Day: 1 Years Smoked: 10 e-Cigarette/Vaping Use: Never Used Second Hand Smoke Exposure: No service: No Current occupational status: employed 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 Current occupational exposures/hazards: No Cognitive needs: No Hearing needs: No Vision needs: Yes Review of Systems Const All systems reviewed & are unremarkable except as noted in HPI and below Physical Exam Vital Signs: Last Vital Signs Temp 97.8 F 07/23/23 15:32 Pulse 73 07/23/23 15:32 BP 106/62 07/23/23 15:32 Pulse Ox 97 07/23/23 15:32 BMI result Body Mass Index 21.6 Const General: comfortable and no acute distress Orientation/consciousness: patient oriented x3 Neuro General: patient oriented x3, gait normal and moves all extremities Extrem Right upper extremity: normal to inspection, full ROM and normal capillary refill Left upper extremity: hand Details: normal to inspection, normal capillary refill and tenderness Location: of the dorsal hand Location: over the 2nd metacarpal and of the 2nd digit Location: at the proximal phalanx Psych Speech and movement: Normal speech and movement present Assessment & Plan Assessment & Plan (1) Injury of left index finger: Code(s): S69.92XA - Unspecified injury of left wrist, hand and finger(s), initial encounter Qualifiers: Encounter type: initial encounter Qualified Code(s): S69.92XA - Unspecified injury of left wrist, hand and finger(s), initial encounter Plan: - IceHot - Ibuprofen for pain relief. - Xray to r/o Fx Medications: New ibuprofen 600 mg PO Q6H PRN 20 tabs 0RF pain S69.92XA - Unspecified injury of left wrist, hand and finger(s), initial encounter Coding Level of Care Code Est Pt Level 4 (49081) Diagnoses Injury of left index finger, initial encounter S69.92XA Encounter type: initial encounter Time Spent (min) 20
== END ==
PROVIDERS: PCP Internal Medicine; Visit Provider Nurse Practitioner Family
DX: S69.92XA Unspecified injury of left wrist, hand and finger(s), initial encounter (principal)
CPT/HCPCS: 99214

== ENCOUNTER 2023-07-23 15:54 | Outpatient (REF) | payer OTHER, MEDICAID, SELFPAY ==
--- NOTE | ~2023-07-23 | XR_ITS ---
EXAMINATION: XR FINGER, LEFT CLINICAL INFORMATION: Injury to left index finger. COMPARISON: None available. TECHNIQUE: 3 radiographs of the left index finger. FINDINGS: The bones and soft tissues are normal. No fracture. Alignment is anatomic. Joint spaces are maintained. There is mild soft tissue swelling. XR/XR finger LT min 2V IMPRESSION: No fracture or dislocation.
== END 2023-07-23 15:55 | disposition home or self-care (01) ==
LOC: HO.HMGCX 15:54
PROVIDERS: PCP Internal Medicine; Visit Provider Nurse Practitioner Family
DX: M65.322 Trigger finger, left index finger (principal)
CPT/HCPCS: 73140